=== PATIENT | female | born 1950 | race Caucasian/White ===

== ENCOUNTER → 2017-01-03 | Outpatient (CLI) | payer MEDICARE, OTHER ==
[~2017-01-03] MED LIST: AMIODARONE; ASPIRIN81 M1 PO; ASPIRIN81 MG PO; BENZONATATE200 M1 PO; BUMETANIDE2 M1 PO; COUMADIN; K-DUR10 MEQ PO; LANOXIN; LIPITOR PO; MAGNESIUM250 M1 PO; MONTELUKAST SOD10 MG PO; MUCINEX D ER T1 EAC1 PO; PREDNISONE; PREDNISONE PO; PRILOSEC20 MG PO; TOPROL XL; TOPROL XL PO; WOMEN'S 50+ DA1 EACH PO; [UNRECOGNIZED DRUG - CODE] PO; [UNRECOGNIZED DRUG - OTHER] PO
--- NOTE | ~2017-01-03 | CT71 ---
[facility] A Service of [facility] RADIOLOGY TEXT RESULTS PATIENT: NANCY COLEMAN [facility] [birth year] UNIT #: [id number] AGE: [address]: David Pittman MD SEX: F ORDER DR: [id number] [facility] [address] [place], [place] [address] [id number] O MR#: [id number] Acc #: [id number] NAME: NANCY COLEMAN. : 1950 SEX: F STUDY DATE/TIME: 01/03/2017 13:22 UNIT: [facility] ROOM: STUDY DESCRIPTION: CT Head Wo Contrast Attending Physician: David Pittman M.D. Referring Physician: David Pittman M.D. Ordering Physician: David Pittman M.D. Primary Care Physician: David Pittman M.D. MEDICAL IMAGING REPORT This report is preliminary unless electronic signature is present EXAM Head CT 01/03/2017 INDICATION Double vision with vertigo, nausea and vomiting over the last 4 days. Symptoms slightly improved today. FINDINGS Axial images were obtained from the base to the vertex without contrast. This CT exam was performed with one or more of the following radiation dose reduction techniques: automatic exposure control, adjustment of mA and/or kV according to patient size, and iterative reconstruction. Comparison is made with 12/31/2013. There is mild generalized age-appropriate atrophy. Ventricular size and configuration are normal. There is no acute infarct or hemorrhage. There are no masses. There are no skull fractures. Mastoid air cells and middle ear cavities are clear. IMPRESSION Mild generalized age-appropriate atrophy. Otherwise, negative head CT. Dictated by... Fermin Stacy Jr., M.D. THIS IS AN ELECTRONICALLY VERIFIED REPORT Fermin Stacy Jr., M.D. at 01/03/2017 4:49 PM ABY/seun TD: 01/03/2017 14:49 JOB #: [id number] [facility] A Service of [facility] RADIOLOGY TEXT RESULTS PATIENT: NANCY COLEMAN LOCATION: [facility] : 48 UNIT #: [id number] AGE: [address]: David Pittman MD SEX: F ORDER DR: MEDICAL IMAGING REPORT Page 1 of 1 COPY
== END | disposition home or self-care (01) ==
LOC: CCAT 12:50
DX: R42 Dizziness and giddiness (principal); H53.2 Diplopia; R11.2 Nausea with vomiting, unspecified
CPT/HCPCS: 70450

== ENCOUNTER → 2017-01-10 | Outpatient (CLI) | payer MEDICARE, OTHER ==
--- NOTE | ~2017-01-10 | MR18 ---
[facility] A Service of [facility] RADIOLOGY TEXT RESULTS PATIENT: NANCY COLEMAN LOCATION: [facility] : 48 UNIT #: [id number] AGE: [address]: David Pittman MD SEX: F ORDER DR: [id number] [place] [id number] [facility] [place], [place] [address] [id number] O MR#: [id number] Acc #: [id number] NAME: NANCY COLEMAN. : 1950 SEX: F STUDY DATE/TIME: 01/10/2017 9:07 UNIT: [facility] ROOM: STUDY DESCRIPTION: MR Brain Wo Contrast Attending Physician: David Pittman M.D. Referring Physician: David Pittman M.D. Ordering Physician: David Pittman M.D. Primary Care Physician: David Pittman M.D. MRI CENTER REPORT This report is preliminary unless electronic signature is present. EXAM Brain MRI. HISTORY Chronic intermittent dizziness for many years. Most recently had an episode of severe vertigo with the jaw pulling to the left, lasting for several seconds. This occurred on 01/01/2017. TECHNIQUE Multiplanar imaging of the brain was performed with short and long TR and compared to a previous scan from 01/14/2014. FINDINGS On diffusion weighted imaging, there is no evidence of abnormal restricted diffusion to suggest a recent infarct. The routine brain images show mild atrophy and mild chronic ischemic changes in the periventricular deep white matter. There is no evidence of mass lesion, hemorrhage, or edema. The cerebellopontine angles are unremarkable. The skull base is unremarkable. Extraaxial structures are normal. Since the previous scan, chronic ischemic changes around the ventricles show very slight progression. IMPRESSION Mild atrophy with minimal chronic ischemic changes around the ventricles showing slight progression since 2013. No evidence of recent infarct. No acute findings. Dictated by... Fermin Sampson M.D. THIS IS AN ELECTRONICALLY VERIFIED REPORT [facility] A Service of [facility] RADIOLOGY TEXT RESULTS PATIENT: NANCY COLEMAN LOCATION: [facility] : 48 UNIT #: [id number] AGE: [address]: David Pittman MD SEX: F ORDER DR: Fermin Sampson M.D. at 01/10/2017 6:31 PM EDGARF/soledad TD: 01/10/2017 11:58 JOB #: [id number] MRI CENTER REPORT Page 1 of 1 COPY
== END | disposition home or self-care (01) ==
LOC: CMRI 08:31
DX: R42 Dizziness and giddiness (principal); G31.9 Degenerative disease of nervous system, unspecified
CPT/HCPCS: 70551

== ENCOUNTER → 2017-05-02 | Outpatient (CLI) | payer MEDICARE, OTHER ==
--- NOTE | ~2017-05-02 | MY29 ---
[facility] A Service of [facility] RADIOLOGY TEXT RESULTS PATIENT: NANCY COLEMAN LOCATION: [facility] : 48 UNIT #: [id number] AGE: [address]: David Pittman MD SEX: F ORDER DR: [id number] [facility] [address] [place], [place] [address] [id number] O MR#: [id number] Acc #: [id number] NAME: NANCY COLEMAN : 1950 SEX: F STUDY DATE/TIME: 05/02/2017 12:19 UNIT: [facility] ROOM: STUDY DESCRIPTION: MY KEYUR SCREENING W/ CAD BILAT Attending Physician: David Pittman M.D. Referring Physician: David Pittman M.D. Ordering Physician: David Pittman M.D. Primary Care Physician: David Pittman M.D. MEDICAL IMAGING REPORT This report is preliminary unless electronic signature is present EXAM Digital screening mammogram, 05/02/2017, [facility]. HISTORY 66-year-old woman positive family history, grandmother. Family history of ovarian cancer in mother. Annual screen. COMPARISON Mammograms date to 07/31/2012 with most recent 10/11/2015. TECHNIQUE Digital imaging of each breast was completed utilizing screening protocol. Review includes FDA-approved CAD device. FINDINGS Breast parenchyma is partially fatty replaced. Minimal parenchymal opacity remains anterior third and subareolar areas of both breast. Mild nodularity in each breast is stable. I see no interval occurring mass. There are no suspicious microcalcifications and no architectural deformity. IMPRESSION Benign mammogram. Annual screening recommended. Patients over the age of 40 are entered into a reminder system with target due date for the next mammogram. A result letter will also be sent to the patient. BIRADS: 2 Benign finding. Dictated by... Ryan Zuniga M.D. [facility] A Service of [facility] RADIOLOGY TEXT RESULTS PATIENT: NANCY COLEMAN LOCATION: [facility] : 48 UNIT #: [id number] AGE: [address]: David Pittman MD SEX: F ORDER DR: THIS IS AN ELECTRONICALLY VERIFIED REPORT Ryan Zuniga M.D. at 05/04/2017 1:44 PM OVI/soledad TD: 05/02/2017 15:55 JOB #: [id number] MEDICAL IMAGING REPORT Page 1 of 1 COPY
== END | disposition home or self-care (01) ==
LOC: CWCC 11:54
DX: Z12.31 Encounter for screening mammogram for malignant neoplasm of breast (principal); Z80.3 Family history of malignant neoplasm of breast; Z80.41 Family history of malignant neoplasm of ovary
CPT/HCPCS: G0202